=== PATIENT | female | born 1945 | race Caucasian/White ===

== ENCOUNTER 2017-07-02 12:18 | Emergency (ER) | payer MEDICARE, MEDICAID ==
[~2017-07-02] VITALS: Ht 167.6 cm; Wt 47.5 kg
[~2017-07-02 12:18] MED LIST: CA C1TAB86 PO; CHOL2000 PO; COU3T PO; CYAN25008 PO; DIGO250T PO; HYDR200T84 PO; NORCO10T PO; OLIV250C PO; POTA8TAB46 PO; PRAV20TA60 PO; PROM25TA14 PO; TRAM50TA2 PO
[2017-07-02 12:56] VITALS: BP 127/67
[2017-07-02] MEDS ORDERED: HYDR-565 PO (14:33)
== END 2017-07-02 15:16 | disposition home or self-care (01) ==
LOC: ER 12:18
DX: S82.091A Other fracture of right patella, initial encounter for closed fracture (principal); S70.01XA Contusion of right hip, initial encounter; M06.9 Rheumatoid arthritis, unspecified; Z95.0 Presence of cardiac pacemaker; Z96.641 Presence of right artificial hip joint; Z98.890 Other specified postprocedural states; Z79.01 Long term (current) use of anticoagulants; Z79.899 Other long term (current) drug therapy; W19.XXXA Unspecified fall, initial encounter; Y93.89 Activity, other specified; Y92.241 Library as the place of occurrence of the external cause; Y99.8 Other external cause status
CPT/HCPCS: 29505; 73502; 73560; 99284

== ENCOUNTER 2018-11-04 08:28 | Day surgery (SDC) | payer MEDICARE, MEDICAID ==
[~2018-11-04] VITALS: Ht 165.1 cm; Wt 47.1 kg
[2018-11-04] VITALS (12 sets, daily range): BP systolic 112–146; BP diastolic 49–91
[2018-11-04] MEDS ORDERED: normal saline 1000ml 1,000 ML IV PRN (08:55)
[2018-11-04] MEDS ORDERED: ENOX40SY7 SQ (09:31)
[2018-11-04] MEDS ORDERED: LORA10TA7 PO (09:31)
[2018-11-04] MEDS ORDERED: VERA240T PO (09:31)
[2018-11-04] MEDS ORDERED: CYAN100087 PO (09:31)
[2018-11-04] MEDS ORDERED: COU4T PO (09:31)
[2018-11-04] MEDS ORDERED: FOLI1TAB16 PO (09:31)
[2018-11-04 09:37] LABS: BASOPHILS # (AUTO) 0.1 X10'3 (0-0.2); BASOPHILS % (AUTO) 1.9 % (0-1); EOSINOPHILS # (AUTO) 0.2 X10'3 (0-0.9); EOSINOPHILS % (AUTO) 2.3 % (0-6); HEMATOCRIT 33.4 % (35.0-45.0); HEMOGLOBIN 10.8 g/dl (12.0-16.0); LYMPHOCYTES # (AUTO) 1.3 X10'3 (1.1-4.8); LYMPHOCYTES % (AUTO) 17.3 % (21-51); MEAN CORPUSCULAR HEMOGLOBIN 30.8 PG (27.0-31.0); MEAN CORPUSCULAR HGB CONC 32.3 g/dL (33.0-36.5); MEAN CORPUSCULAR VOLUME 95.3 FL (78-98); MEAN PLATELET VOLUME 8.3 FL (7.4-10.4); MONOCYTES # (AUTO) 0.7 X10'3 (0-0.9); NEUTROPHILS % (AUTO) 68.5 % (42-75); PLATELET COUNT 236 X10'3 (140-440); RED CELL DISTRIBUTION WIDTH 15.5 % (11.5-14.5); WHITE BLOOD COUNT 7.3 X10'3 (4.5-11.0)
[2018-11-04 09:41] LABS: ALBUMIN 3.6 G/DL (3.4-5.0); ANION GAP 8 (8-16); BLOOD UREA NITROGEN 24 MG/DL (7-18); BUN/CREATININE RATIO 25.5 (6.6-38.0); CALCIUM 9.1 MG/DL (8.5-10.1); CHLORIDE 106 MMOL/L (99-107); CREATININE 0.94 MG/DL (0.40-0.90); GLUCOSE 87 MG/DL (70-104); POTASSIUM 4.3 MMOL/L (3.5-5.1); SODIUM 141 MMOL/L (135-145); TOTAL CARBON DIOXIDE 26.8 MMOL/L (24-32); eGFR 58 ML/MIN
[2018-11-04] MEDS ORDERED: midazolam 2 mg/2 ml injection ONE (10:37)
[2018-11-04] MEDS ORDERED: fentaNYL/PF 50MCG/1 ML 2ML syringe ONE (10:37)
== END 2018-11-04 12:35 | disposition home or self-care (01) ==
LOC: SSTAY O 08:28
PROVIDERS: ATTEND Radiology Vascular & Interventional Radiology
DX: K76.9 Liver disease, unspecified (principal); R22.9 Localized swelling, mass and lump, unspecified; J44.9 Chronic obstructive pulmonary disease, unspecified; Z87.891 Personal history of nicotine dependence; Z79.899 Other long term (current) drug therapy; Z95.2 Presence of prosthetic heart valve; Z95.0 Presence of cardiac pacemaker
CPT/HCPCS: 36415; 38505; 77012; 80048; 85025; 85610; 88341; 88342; J2250; J3010; J7030; 88305; 99152; 99153

== ENCOUNTER 2018-11-17 08:48 | Day surgery (SDC) | payer MEDICARE, MEDICAID ==
[2018-11-17] VITALS (14 sets, daily range): BP systolic 100–132; BP diastolic 43–76
[~2018-11-17] VITALS: Ht 160 cm; Wt 45.9 kg
[~2018-11-17 08:48] MED LIST changes: -CA C1TAB86 PO; -CHOL2000 PO; -COU3T PO; +COU4T PO; +CYAN100087 PO; -CYAN25008 PO; +ENOX40SY7 SQ; +FOLI1TAB16 PO; -HYDR200T84 PO; +LORA10TA7 PO; -OLIV250C PO; -POTA8TAB46 PO; -PRAV20TA60 PO; -PROM25TA14 PO; -TRAM50TA2 PO; +VERA240T PO
[2018-11-17] MEDS ORDERED: PRED5TAB PO (09:26)
[2018-11-17] MEDS ORDERED: normal saline 1000ml 1,000 ML IV PRN (09:35)
[2018-11-17] MEDS ORDERED: HYDROcodone/acetaminophen 5mg/325mg tablet PO PRN (09:45)
[2018-11-17] MEDS ORDERED: normal saline 1000ml 1,000 ML IV SCH (09:45)
[2018-11-17 09:58] LABS: BASOPHILS # (AUTO) 0.1 X10'3 (0-0.2); BASOPHILS % (AUTO) 1.1 % (0-1); EOSINOPHILS % (AUTO) 0.3 % (0-6); HEMATOCRIT 36.1 % (35.0-45.0); HEMOGLOBIN 11.6 g/dl (12.0-16.0); LYMPHOCYTES # (AUTO) 1.1 X10'3 (1.1-4.8); MEAN CORPUSCULAR HGB CONC 32.2 g/dL (33.0-36.5); MEAN CORPUSCULAR VOLUME 96.5 FL (78-98); MEAN PLATELET VOLUME 8.3 FL (7.4-10.4); MONOCYTES # (AUTO) 0.6 X10'3 (0-0.9); MONOCYTES % (AUTO) 6.7 % (2-12); NEUTROPHILS # (AUTO) 7.8 X10'3 (1.8-7.7); NEUTROPHILS % (AUTO) 80.9 % (42-75); PLATELET COUNT 221 X10'3 (140-440); RED BLOOD COUNT 3.74 X10'6 (4.20-5.60); RED CELL DISTRIBUTION WIDTH 16.7 % (11.5-14.5); WHITE BLOOD COUNT 9.7 X10'3 (4.5-11.0)
[2018-11-17 11:24] LABS: ALBUMIN 3.6 G/DL (3.4-5.0); ANION GAP 8 (8-16); BLOOD UREA NITROGEN 27 MG/DL (7-18); CALCIUM 8.6 MG/DL (8.5-10.1); CHLORIDE 105 MMOL/L (99-107); GLUCOSE 102 MG/DL (70-104); POTASSIUM 4.6 MMOL/L (3.5-5.1); SODIUM 140 MMOL/L (135-145); TOTAL CARBON DIOXIDE 26.8 MMOL/L (24-32); eGFR 54 ML/MIN
[2018-11-17] MEDS ORDERED: fentaNYL/PF 50MCG/1 ML 2ML syringe IV PRN (11:45)
[2018-11-17] MEDS ORDERED: LIDOcaine 1%/PF 5ML 10 MG/ML VIAL SQ ONE (11:45)
[2018-11-17] MEDS ORDERED: midazolam 2 mg/2 ml injection IV PRN (11:45)
[2018-11-17] MEDS ORDERED: midazolam 2 mg/2 ml injection ONE (11:47)
[2018-11-17] MEDS ORDERED: fentaNYL/PF 50MCG/1 ML 2ML syringe ONE (11:47)
== END 2018-11-17 15:40 | disposition home or self-care (01) ==
LOC: SSTAY O 08:48
PROVIDERS: ATTEND Radiology Diagnostic Radiology
DX: K76.89 Other specified diseases of liver (principal); M06.9 Rheumatoid arthritis, unspecified; J44.9 Chronic obstructive pulmonary disease, unspecified; Z79.01 Long term (current) use of anticoagulants; Z87.891 Personal history of nicotine dependence; Z79.899 Other long term (current) drug therapy; Z95.0 Presence of cardiac pacemaker; Z98.890 Other specified postprocedural states; Z95.2 Presence of prosthetic heart valve
CPT/HCPCS: 36415; 47000; 76942; 80048; 85025; 85610; J2250; J3010; J7030; 88173; 88305; 99152; 99153

== ENCOUNTER 2019-02-03 08:37 | Day surgery (SDC) | payer MEDICARE, MEDICAID ==
[2019-02-03] VITALS (7 sets, daily range): BP systolic 109–128; BP diastolic 50–63
[~2019-02-03] VITALS: Ht 165.1 cm; Wt 52.8 kg
[~2019-02-03 08:37] MED LIST changes: -DIGO250T PO; -NORCO10T PO; +PRED5TAB PO; -VERA240T PO
[2019-02-03] MEDS ORDERED: normal saline 1000ml 1,000 ML IV SCH (09:00)
[2019-02-03] MEDS ORDERED: CALC-1051 PO (09:45)
[2019-02-03] MEDS ORDERED: DIGO125T97 PO (09:45)
[2019-02-03] MEDS ORDERED: [UNRECOGNIZED DRUG - OTHER] PO (09:45)
[2019-02-03] MEDS ORDERED: HYDR-4353 PO (09:45)
[2019-02-03] MEDS ORDERED: VERA120T9 PO (09:45)
[2019-02-03] MEDS ORDERED: VITC500T PO (09:45)
[2019-02-03] MEDS ORDERED: IMMUNE FACTOR PO (09:45)
[2019-02-03 09:47] LABS: BASOPHILS # (AUTO) 0.1 X10'3 (0-0.2); BASOPHILS % (AUTO) 0.7 % (0-1); EOSINOPHILS # (AUTO) 0.1 X10'3 (0-0.9); EOSINOPHILS % (AUTO) 0.6 % (0-6); HEMATOCRIT 41.3 % (35.0-45.0); HEMOGLOBIN 13.6 g/dl (12.0-16.0); LYMPHOCYTES % (AUTO) 8.6 % (21-51); MEAN PLATELET VOLUME 8.9 FL (7.4-10.4); MONOCYTES # (AUTO) 1.2 X10'3 (0-0.9); MONOCYTES % (AUTO) 10.2 % (2-12); NEUTROPHILS # (AUTO) 9.6 X10'3 (1.8-7.7); NEUTROPHILS % (AUTO) 79.9 % (42-75); PLATELET COUNT 208 X10'3 (140-440); RED BLOOD COUNT 4.26 X10'6 (4.20-5.60); RED CELL DISTRIBUTION WIDTH 14.9 % (11.5-14.5)
[2019-02-03] MEDS ORDERED: heparin sodium, porcine/PF 100unit/ml 5ML syringe ONE (12:21)
[2019-02-03] MEDS ORDERED: midazolam 2 mg/2 ml injection ONE (12:22)
[2019-02-03] MEDS ORDERED: fentaNYL/PF 50MCG/1 ML 2ML syringe ONE (12:22)
[2019-02-03] MEDS ORDERED: LIDOcaine 1%/PF 5ML 10 MG/ML VIAL ONE (12:22)
== END 2019-02-03 15:00 | disposition home or self-care (01) ==
LOC: SSTAY O 08:37
PROVIDERS: ATTEND Radiology Vascular & Interventional Radiology
DX: C85.19 Unspecified B-cell lymphoma, extranodal and solid organ sites (principal); E78.00 Pure hypercholesterolemia, unspecified; M06.9 Rheumatoid arthritis, unspecified; J44.9 Chronic obstructive pulmonary disease, unspecified; Z79.899 Other long term (current) drug therapy; Z88.8 Allergy status to other drugs, medicaments and biological substances; Z87.891 Personal history of nicotine dependence; Z72.89 Other problems related to lifestyle; Z79.01 Long term (current) use of anticoagulants; Z95.0 Presence of cardiac pacemaker; Z98.890 Other specified postprocedural states; Z95.2 Presence of prosthetic heart valve; Z80.3 Family history of malignant neoplasm of breast; Z83.3 Family history of diabetes mellitus
CPT/HCPCS: 36415; 36561; 76937; 77001; 85025; 85610; 99152; J1642; J2250; J3010; 99153; A6213; C1769; C1788; C1894

== ENCOUNTER 2019-02-07 13:34 | Emergency (ER) | payer MEDICARE, MEDICAID ==
[~2019-02-07] VITALS: Ht 165.1 cm; Wt 52.7 kg
[~2019-02-07 13:34] MED LIST changes: +CALC-1051 PO; +DIGO125T97 PO; -FOLI1TAB16 PO; +HYDR-4353 PO; +IMMUNE FACTOR PO; -LORA10TA7 PO; +VERA120T9 PO; +VITC500T PO; +[UNRECOGNIZED DRUG - OTHER] PO
[2019-02-07 14:20] LABS: BASOPHILS # (AUTO) 0.1 X10'3 (0-0.2); EOSINOPHILS % (AUTO) 0 % (0-6); HEMOGLOBIN 11.4 g/dl (12.0-16.0); MEAN PLATELET VOLUME 8.4 FL (7.4-10.4); NEUTROPHILS # (AUTO) 38.4 X10'3 (1.8-7.7)
[2019-02-07 14:22] LABS: BASOPHILS % (AUTO) 0.2 % (0-1); HEMATOCRIT 34.3 % (35.0-45.0); LYMPHOCYTES # (AUTO) 0.1 X10'3 (1.1-4.8); LYMPHOCYTES % (AUTO) 0.4 % (21-51); MEAN CORPUSCULAR HEMOGLOBIN 32.2 PG (27.0-31.0); MEAN CORPUSCULAR HGB CONC 33.4 g/dL (33.0-36.5); MEAN CORPUSCULAR VOLUME 96.6 FL (78-98); MONOCYTES % (AUTO) 2.5 % (2-12); NEUTROPHILS % (AUTO) 96.9 % (42-75); PLATELET COUNT 189 X10'3 (140-440); RED BLOOD COUNT 3.55 X10'6 (4.20-5.60); RED CELL DISTRIBUTION WIDTH 14.9 % (11.5-14.5)
[2019-02-07 14:25] LABS: WHITE BLOOD COUNT 39.6 X10'3 (4.5-11.0)
[2019-02-07 14:28] LABS: PARTIAL THROMBOPLASTIN TIME 30 SECONDS (22-32)
[2019-02-07 14:30] LABS: ALANINE AMINOTRANSFERASE 70 U/L (12-78); ALBUMIN/GLOBULIN RATIO 0.9 (1.1-1.5); ALKALINE PHOSPHATASE 97 IU/L (46-116); ANION GAP 9 (8-16); ASPARTATE AMINO TRANSFERASE 49 U/L (10-37); BILIRUBIN,TOTAL 0.3 MG/DL (0.1-1.0); BLOOD UREA NITROGEN 44 MG/DL (7-18); CALCIUM 10.1 MG/DL (8.5-10.1); CHLORIDE 103 MMOL/L (99-107); GLUCOSE 179 MG/DL (70-104); POTASSIUM 3.9 MMOL/L (3.5-5.1); SODIUM 138 MMOL/L (135-145); TOTAL CARBON DIOXIDE 26.4 MMOL/L (24-32); TOTAL PROTEIN 6.3 G/DL (6.4-8.2); eGFR 49 ML/MIN
[2019-02-07] MEDS ORDERED: tranexamic acid 100mg/ml inj. TP ONE (14:30)
[2019-02-07 14:38] LABS: ANISOCYTOSIS 1+; PLATELET ESTIMATE NORMAL; TOTAL CELLS COUNTED 100
[2019-02-07 16:20] VITALS: BP 134/73
== END 2019-02-07 16:15 | disposition home or self-care (01) ==
LOC: ER 13:35
DX: T82.838A Hemorrhage due to vascular prosthetic devices, implants and grafts, initial encounter (principal); M06.9 Rheumatoid arthritis, unspecified; Z98.890 Other specified postprocedural states; Z95.0 Presence of cardiac pacemaker; Z88.5 Allergy status to narcotic agent; Z79.899 Other long term (current) drug therapy; Z85.118 Personal history of other malignant neoplasm of bronchus and lung; Z79.01 Long term (current) use of anticoagulants; Y92.89 Other specified places as the place of occurrence of the external cause
CPT/HCPCS: 36415; 71045; 80053; 85025; 85610; 85730; 99284

== ENCOUNTER 2021-08-02 14:00 | Emergency (ER) | payer MEDICARE, MEDICAID ==
[~2021-08-02] VITALS: Ht 165.1 cm; Wt 55.5 kg
[~2021-08-02 14:00] MED LIST changes: +VERA120T86 PO; -VERA120T9 PO
[2021-08-02 14:01] VITALS: BP 129/64
[2021-08-02] MEDS ORDERED: diazepam 5mg tablet PO ONE (15:35)
[2021-08-02] MEDS ORDERED: oxyCODONE/APAP 10/325mg tablet PO ONE (15:35)
--- NOTE | 2021-08-02 15:52 | NUR ---
PT TO CT
--- NOTE | 2021-08-02 16:00 | NUR ---
BACK FROM CT
[2021-08-02] MEDS ORDERED: OXYC1TAB17 PO (16:55)
[2021-08-02] MEDS ORDERED: OXYC-138 PO (19:26)
== END 2021-08-02 18:19 | disposition home or self-care (01) ==
LOC: ER 14:00
DX: M54.50 Low back pain, unspecified (principal); M19.90 Unspecified osteoarthritis, unspecified site; G89.29 Other chronic pain; M06.9 Rheumatoid arthritis, unspecified; Z87.81 Personal history of (healed) traumatic fracture; Z95.0 Presence of cardiac pacemaker; Z72.89 Other problems related to lifestyle; Z88.8 Allergy status to other drugs, medicaments and biological substances; Z79.899 Other long term (current) drug therapy; Z79.01 Long term (current) use of anticoagulants
CPT/HCPCS: 72131; 99284